=== PATIENT | female | born 1980 | race Caucasian/White ===

== ENCOUNTER 2016-11-15 17:40 | Emergency (ER) | payer OTHER, SELFPAY ==
--- NOTE | 2016-11-15 17:43 | ED.PDOC ---
History of Present Illness - General Chief Complaint: Abdominal Pain Stated Complaint: nausea and abdominal pain Time Seen by Provider: 11/15/16 17:43 Information Source: patient, RN notes reviewed, Vital Signs reviewed Additional Information: Pt reports intermittent abdominal cramping with nausea and vomiting for the past 4 days. She reports recurrent bouts over the past several months. She reports symptoms consistent with tenesmus and possibly IBS vs IBD. She does have some GI related family hx (Mother - colon illness). - History of Present Illness Abdominal Pain Onset Location: generalized abdomen Quality: cramping, dull, intermittent Timing/Duration: intermittent Improving Factors: nothing Associated Symptoms: nausea/vomiting Review of Systems - Review of Systems Constitutional: States: no symptoms reported EENTM: States: no symptoms reported Respiratory: States: no symptoms reported Cardiology: States: no symptoms reported Gastrointestinal/Abdominal: States: see HPI, abdominal pain, nausea Genitourinary: States: no symptoms reported Musculoskeletal: States: no symptoms reported Skin: States: no symptoms reported Neurological: States: no symptoms reported Endocrine: States: no symptoms reported Hematologic/Lymphatic: States: no symptoms reported Past Medical History (General) - Patient Medical History Hx Seizures: No Hx Stroke: No Hx Dementia: No Hx Asthma: Yes Hx of COPD: No Hx Cardiac Disorders: No Hx Congestive Heart Failure: No Hx Pacemaker: No Hx Hypertension: No Hx Thyroid Disease: No Hx Diabetes: No Hx Gastroesophageal Reflux: No Hx Renal Disease: No Hx Cancer: No Hx of HIV: No Hx Hepatitis C: No Hx MRSA: No - Vaccination History Hx Tetanus, Diphtheria Vaccination: No Hx Influenza Vaccination: No Hx Pneumococcal Vaccination: No - Social History Hx Tobacco Use: Yes Hx Chewing Tobacco Use: No Hx Alcohol Use: No Hx Substance Use: No Hx Substance Use Treatment: No Hx Depression: No Hx Physical Abuse: No Hx Emotional Abuse: No Hx Suspected Abuse: No - Female History Hx Last Menstrual Period: 12/21/13 Patient : No Family Medical History - Family History Mother Hx Family;Other: Mother with some sort of colon problems. Physical Exam - Physical Exam General Appearance: Alert, Comfortable, No apparent distress Eyes, Ears, Nose, Throat Exam: PERRL/EOMI, pharynx normal Neck: non-tender, full range of motion, supple Respiratory: no respiratory distress Cardiovascular/Chest: normal peripheral pulses, regular rate, rhythm Gastrointestinal/Abdominal: normal bowel sounds, non tender, soft Back Exam: normal inspection Extremity: normal range of motion, non-tender Neurologic: audit director II-XII nml as tested, no motor/sensory deficits, alert, normal mood/affect, oriented x 3 Skin Exam: normal color Lymphatic: no adenopathy Progress - Progress Progress: 11/15/16 19:23 Pt stable. Abdomen soft. Labs normal. No clear indication for CT Abd/Pelvis at this time. Pt cleared for discharge from ED and encouraged to f/u with PCM for GI referral. Pt given strict return precautions as well. - Results/Orders Results/Orders: Laboratory Results - last 24 hr 11/15/16 11/15/16 11/15/16 17:44 18:11 18:11 WBC 6.7 RBC 4.55 Hgb 13.5 Hct 40.7 MCV 89.5 MCH 29.8 MCHC 33.3 RDW 12.4 Plt Count 270 MPV 9.0 Absolute Neuts (auto) 3.20 Absolute Lymphs (auto) 2.60 Absolute Monos (auto) 0.50 Absolute Eos (auto) 0.30 Absolute Basos (auto) 0.00 Neutrophils % 48.1 Lymphocytes % 39.2 Monocytes % 8.2 Eosinophils % 3.8 Basophils % 0.7 Sodium 139 Potassium 3.8 Chloride 108 Carbon Dioxide 23 Anion Gap 11.8 L BUN 10 Creatinine 0.65 BUN/Creatinine Ratio 15.4 Random Glucose 117 H Serum Osmolality 277.6 Calcium 9.0 Total Bilirubin 0.5 AST 14 ALT 15 Alkaline Phosphatase 49 Serum Total Protein 7.2 Albumin 4.1 Globulin 3.1 Albumin/Globulin Ratio 1.3 Lipase Urine Color Urine Appearance Urine pH Ur Specific [place] Urine Protein Urine Glucose (UA) Urine Ketones Urine Blood Urine Nitrite Urine Bilirubin Urine Urobilinogen Ur Leukocyte Esterase Urine RBC Urine WBC Ur Epithelial Cells Urine Bacteria Urine Mucus Urine HCG, Qual Negative 11/15/16 11/15/16 18:11 18:39 WBC RBC Hgb Hct MCV MCH MCHC RDW Plt Count MPV Absolute Neuts (auto) Absolute Lymphs (auto) Absolute Monos (auto) Absolute Eos (auto) Absolute Basos (auto) Neutrophils % Lymphocytes % Monocytes % Eosinophils % Basophils % Sodium Potassium Chloride Carbon Dioxide Anion Gap BUN Creatinine BUN/Creatinine Ratio Random Glucose Serum Osmolality Calcium Total Bilirubin AST ALT Alkaline Phosphatase Serum Total Protein Albumin Globulin Albumin/Globulin Ratio Lipase 26 Urine Color Yellow Urine Appearance Clear Urine pH 5.5 Ur Specific [place] >= 1.030 Urine Protein Negative Urine Glucose (UA) Negative Urine Ketones Negative Urine Blood Negative Urine Nitrite Negative Urine Bilirubin Negative Urine Urobilinogen 0.2 Ur Leukocyte Esterase Negative Urine RBC 0 Urine WBC 0 Ur Epithelial Cells 1-3 Urine Bacteria 0 Urine Mucus Large Urine HCG, Qual Departure - Departure Clinical Impression: Nausea Abdominal pain Qualifiers: Abdominal location: generalized Qualified Code(s): R10.84 - Generalized abdominal pain Time of Disposition: 19:30 Disposition: Discharge to Home or Self Care Condition: Fair Diet: other - Look up recommended diet for Irritable Bowel or Inflammatory Bowel Referrals: Hakeem Zayas MD [Primary Care Provider] - 1-2 Days Prescriptions: Ondansetron Odt [Zofran ODT] 8 mg PO Q6HR PRN #20 tab PRN Reason: Nausea/Vomiting Home Medications: Ambulatory Orders Ondansetron Odt [Zofran ODT] 8 mg PO Q6HR PRN #20 tab 11/15/16 Additional Instructions: You would likely benefit from a referral to a Appraisal Analyst given the recurrence of your symptoms and your family history. You will likely benefit from an upper and lower endoscopy. Your labwork today was normal. Return to ER if condition worsens.
[2016-11-15] MEDS ORDERED: SODIUM CHLORIDE 0.9% 1000ML 1,000 ML IVS ONE (17:44)
[2016-11-15] MEDS ORDERED: ONDANSETRON INJ 4 MG/2 ML VIAL IV ONE (17:44)
[2016-11-15] MEDS ORDERED: ONDANSETRON ODT 8 MG TAB SL ONE (19:08)
[2016-11-15] MEDS ORDERED: PROMETHAZINE TAB (ER DISP) 25 MG TAB PO ONE ×2 (19:13→19:25)
[2016-11-15 19:58] VITALS: BP 122/68; TEMP 98; O2SAT 98
== END 2016-11-15 19:39 | disposition home or self-care (01) ==
LOC: ER 17:40
DX: R10.84 Generalized abdominal pain (principal); R11.2 Nausea with vomiting, unspecified; Z87.891 Personal history of nicotine dependence